=== PATIENT | male | born 1960 | race Two or more races ===

== ENCOUNTER → 2023-04-29 | Emergency (ER) | payer OTHER ==
[~2023-04-29] VITALS: Ht 185.4 cm; Wt 156.5 kg
== END | disposition left against medical advice (07) ==
LOC: ER 21:14
DX: S00.93XA Contusion of unspecified part of head, initial encounter (principal); W18.30XA Fall on same level, unspecified, initial encounter; Y93.9 Activity, unspecified; Y92.59 Other trade areas as the place of occurrence of the external cause; Y99.9 Unspecified external cause status; F10.10 Alcohol abuse, uncomplicated